=== PATIENT | female | born 1990 | race Caucasian/White ===

== ENCOUNTER → 2019-06-01 | Outpatient (CLI) | payer OTHER, SELFPAY ==
[2019-06-01 13:21] VITALS: BMI 27.4
[2019-06-01 14:29] LABS: Absolute Lymphocyte Count 1.48 X10^3/ul (0.83-4.51); Absolute Neutrophil Count 11.8 X10^3/uL (2.0-7.7); Basophil# 0.01 X10^3/uL; Basophil% 0.1 % (0-1); Eosinophil# 0.01 X10^3/uL; Eosinophils% 0.1 % (0-5); Hematocrit 40.2 % (37-47); Hemoglobin 13.4 g/dl (12.0-15.0); Lymphocyte # 1.48 X10^3/ul (4.0); Lymphocyte % 10.2 % (19-41); Mean Corp Hgb Conc 33.3 g/gl (32-36); Mean Corpuscular Hgb 30.5 pg (27.0-32.0); Mean Corpuscular Volume 91.4 fL (81-99); Mean Platelet Vol. 10.4 fl (6.2-12.0); Monocyte# 1.18 X10^3/uL; Monocyte% 8.2 % (0-10); Neutrophil # 11.75 X10^3/uL (2.7-7.7); Neutrophil % 81.1 % (47-70); Platelet Count 257 K/mm3 (150-450); White Blood Count 14.5 K/mm3 (4.4-11.0)
[2019-06-01 14:30] LABS: POSITIVE COUNT NO; POSITIVE DIFFERENTIAL NO; POSITIVE MORPHOLOGY NO
[2019-06-01 14:43] LABS: Thyroid Stim Hormone (TSH) 1.13 uIU/mL (0.358-3.74)
[2019-06-01 23:06] LABS: Chlamydia Trachomatis by PCR Negative (Negative); Neisserai gonorrhoeae by PCR Negative (Negative); Probe Check PASS; Sample Adequacy Control PASS; Specimen Processing Control PASS
[2019-06-06 14:55] LABS: HPV APTIMA, High Risk Negative (Negative)
[2019-06-06 14:57] LABS: HPV Reflexed? NOT INDICATED
== END | disposition home or self-care (01) ==
PROVIDERS: Referring Provider Nurse Practitioner Women's Health; Visit Provider Nurse Practitioner Women's Health
DX: N92.1 Excessive and frequent menstruation with irregular cycle (principal); Z11.3 Encounter for screening for infections with a predominantly sexual mode of transmission; Z12.4 Encounter for screening for malignant neoplasm of cervix
CPT/HCPCS: 36415; 84443; 85025; 87491; 87591; 87624; 88175; G0145

== ENCOUNTER → 2019-06-02 | Outpatient (CLI) | payer OTHER, SELFPAY ==
[2019-06-01 14:13] VITALS: BMI 27.4
== END | disposition home or self-care (01) ==
LOC: LABSPEC 14:24
PROVIDERS: Referring Provider Physician Assistant; Visit Provider Physician Assistant
DX: J02.9 Acute pharyngitis, unspecified (principal)
CPT/HCPCS: 87081

== ENCOUNTER → 2019-12-14 07:23 | Outpatient (CLI) | payer OTHER, SELFPAY ==
[2019-12-12 14:03] VITALS: BMI 27.4
[2019-12-14 08:30] LABS: Cholesterol 116 mg/dL (200); Follicle Stimulating Hormone 5.2 mIU/mL; Glucose 83 mg/dL (74-106); High Density Lipoprotein 42 mg/dL; Prolactin 13.7 ng/mL; Triglycerides 75 mg/dL; Very Low Density Lipoprotein 15 mg/dL (5-40)
[2019-12-14 08:31] LABS: Hemoglobin A1c 5.2 % (4.2-6.3)
[2019-12-16 13:34] LABS: Testosterone Free 2.6 pg/mL (0.0-4.2)
[2019-12-18 10:31] LABS: 17-Hydroxyprogesterone 116 ng/dL (.)
== END ==
PROVIDERS: Referring Provider Nurse Practitioner Women's Health; Visit Provider Nurse Practitioner Women's Health
DX: N91.1 Secondary amenorrhea (principal)
CPT/HCPCS: 36415; 80061; 82627; 82670; 82947; 83001; 83036; 83498; 84146; 84402; 82626

== ENCOUNTER 2020-09-07 19:25 | Outpatient (RCR) | payer OTHER, SELFPAY ==
[2020-06-04 10:55] VITALS: BMI 27.4
== END 2020-09-22 23:59 ==
LOC: LABSPEC 19:25
PROVIDERS: Visit Provider Family Medicine Geriatric Medicine
DX: Z11.59 Encounter for screening for other viral diseases (principal)
CPT/HCPCS: 87635; U0003

== ENCOUNTER → 2020-11-26 08:15 | Outpatient (CLI) | payer OTHER, SELFPAY ==
[2020-10-03 08:10] VITALS: BMI 34.4
[2020-11-26 09:07] LABS: Hemoglobin A1c 5.2 % (3.8-5.6)
[2020-11-26 09:10] LABS: Insulin 22.4 mU/L (2.6-37.6); Rubella IgG Reactive (Nonreactive)
[2020-11-26 09:11] LABS: AST(SGOT) 24 U/L (15-37); Alanine Aminotransfer ALT/SGPT 36 U/L (13-56); Albumin, Serum 4.2 g/dL (3.2-5.0); Alkaline Phosphatase 64 U/L (45-117); Anion Gap 9 (5-15); BUN 15 mg/dL (7-18); BUN/Creat Ratio 14.7 RATIO (10-20); Calcium,Total 8.9 mg/dL (8.5-10.1); Chloride 102 mmol/L (98-107); Cholesterol 155 mg/dL (200); Creatinine, Serum 1.02 mg/dL (0.55-1.02); EST Glomerular Filtration Rate 68 mL/min (>60); Est Glom Filt Rate - Afr Amer 83 mL/min (>60); Globulin 4.4 g/dL (2.2-4.2); Glucose 86 mg/dL (74-106); High Density Lipoprotein 54 mg/dL; Potassium 3.4 mmol/L (3.5-5.1); Protein, Total 8.6 g/dL (6.4-8.2); Sodium Level 138 mmol/L (136-145); Thyroid Stim Hormone (TSH) 5.83 uIU/mL (0.358-3.74); Triglycerides 85 mg/dL; Very Low Density Lipoprotein 17 mg/dL (5-40)
[2020-11-28 08:49] LABS: V-Zoster IgG (Immunity) 1735 index (Immune >165)
== END ==
PROVIDERS: Referring Provider Obstetrics & Gynecology Reproductive Endocrinology; Visit Provider Obstetrics & Gynecology Reproductive Endocrinology
DX: N93.8 Other specified abnormal uterine and vaginal bleeding (principal); E02 Subclinical iodine-deficiency hypothyroidism; E28.2 Polycystic ovarian syndrome; Z01.83 Encounter for blood typing; Z11.59 Encounter for screening for other viral diseases; Z11.8 Encounter for screening for other infectious and parasitic diseases; Z31.41 Encounter for fertility testing
CPT/HCPCS: 36415; 80053; 80061; 83036; 83525; 84403; 84443; 86762; 86787; 86900; 86901

== ENCOUNTER → 2020-12-03 07:20 | Outpatient (CLI) | payer OTHER, SELFPAY ==
[2020-10-03 08:10] VITALS: BMI 34.4
[2020-12-03 08:46] LABS: Glucose 75GTT - 30 minutes 132 mg/dL (100-160)
[2020-12-03 08:54] LABS: Glucose 75GTT - Fasting 86 mg/dL (70-99)
[2020-12-03 08:55] LABS: Insulin 23.4 mU/L (2.6-37.6)
[2020-12-03 09:00] LABS: Cholesterol 142 mg/dL (200); High Density Lipoprotein 52 mg/dL; T4 Free Direct 0.97 ng/dL (0.76-1.46); Triglycerides 84 mg/dL; Very Low Density Lipoprotein 17 mg/dL (5-40)
[2020-12-03 09:32] LABS: Glucose 75GTT - 60 minutes 114 mg/dL (100-160)
[2020-12-03 11:00] LABS: Glucose 75GTT - 120 minutes 97 mg/dL (70-140)
[2020-12-04 14:10] LABS: Thyroid Peroxidase AB 13 IU/mL (0-34)
[2020-12-04 15:21] LABS: Thyroglobulin Antibody < 1.0 IU/mL (0.0-0.9)
== END ==
PROVIDERS: Referring Provider Obstetrics & Gynecology Reproductive Endocrinology; Visit Provider Obstetrics & Gynecology Reproductive Endocrinology
DX: E16.8 Other specified disorders of pancreatic internal secretion (principal)
CPT/HCPCS: 36415; 80061; 82951; 82952; 83525; 84439; 84443; 86376; 86800

== ENCOUNTER 2021-02-26 23:05 | Outpatient (RCR) | payer OTHER, SELFPAY ==
[2021-02-18 09:06] VITALS: BMI 33.9
== END 2021-03-22 23:59 ==
LOC: EMPH 23:05
PROVIDERS: Visit Provider Family Medicine Geriatric Medicine
DX: Z03.818 Encounter for observation for suspected exposure to other biological agents ruled out (principal)
CPT/HCPCS: 87426

== ENCOUNTER → 2024-07-04 | Outpatient (CLI) | payer OTHER, SELFPAY ==
[2024-07-04 08:58] LABS: Absolute Lymphocyte Count 2.36 X10^3/uL (0.83-4.51); Absolute Neutrophil Count 3.6 X10^3/uL (2.0-7.7); Basophil# 0.04 X10^3/uL; Basophil% 0.6 % (0-1); Eosinophil# 0.12 X10^3/uL; Eosinophils% 1.8 % (0-5); Hematocrit 46.2 % (37-47); Hemoglobin 14.9 g/dL (12.0-15.0); Lymphocyte # 2.36 X10^3/ul (0.83-4.51); Lymphocyte % 35.8 % (19-41); Mean Corp Hgb Conc 32.3 g/dL (32-36); Mean Corpuscular Hgb 30.8 pg (27.0-32.0); Mean Corpuscular Volume 95.5 fL (81-99); Mean Platelet Vol. 10.7 fl (6.2-12.0); Monocyte# 0.44 X10^3/uL; Monocyte% 6.7 % (0-10); NRBC Flagged by Analyzer 0 % (0-5); Neutrophil # 3.62 X10^3/uL (2.7-7.7); Neutrophil % 54.8 % (47-70); Platelet Count 254 K/mm3 (150-450); RBC Distribution Width SD 45.7 fl (35.1-43.9); Red Blood Count 4.84 M/mm3 (4.2-5.4); White Blood Count 6.6 K/mm3 (4.4-11.0)
[2024-07-04 12:06] LABS: ALB/GLOB Ratio 0.9 RATIO (0.9-2.4); AST(SGOT) 28 U/L (15-37); Alanine Aminotransfer ALT/SGPT 40 U/L (13-56); Albumin, Serum 4.2 g/dL (3.2-5.0); Alkaline Phosphatase 61 U/L (45-117); Anion Gap 8 (5-15); BUN 13 mg/dL (7-18); BUN/Creat Ratio 12.6 RATIO (10-20); Calcium,Total 10.9 mg/dL (8.5-10.1); Chloride 105 mmol/L (98-107); Cholesterol 180 mg/dL (200); Creatinine, Serum 1.03 mg/dL (0.55-1.02); EST Glomerular Filtration Rate 66 mL/min (>60); Est Glom Filt Rate - Afr Amer 80 mL/min (>60); Globulin 4.5 g/dL (2.2-4.2); Glucose 73 mg/dL (74-106); High Density Lipoprotein 44 mg/dL; Potassium 3.4 mmol/L (3.5-5.1); Protein, Total 8.7 g/dL (6.4-8.2); Sodium Level 137 mmol/L (136-145); T4 Free Direct 0.85 ng/dL (0.76-1.46); Triglycerides 227 mg/dL; Very Low Density Lipoprotein 45 mg/dL (5-40)
[2024-07-05 08:19] LABS: Thyroid Stim Hormone (TSH) 2.94 uIU/mL (0.358-3.74)
== END | disposition home or self-care (01) ==
PROVIDERS: Referring Provider Physician Assistant; Visit Provider Physician Assistant
DX: L70.0 Acne vulgaris (principal); L72.8 Other follicular cysts of the skin and subcutaneous tissue; R53.83 Other fatigue; Z79.899 Other long term (current) drug therapy
CPT/HCPCS: 36415; 80053; 80061; 84439; 84443; 85025

== ENCOUNTER → 2024-10-11 | Outpatient (CLI) | payer OTHER, SELFPAY ==
[2024-10-11 10:18] LABS: AST(SGOT) 28 U/L (15-37); Alanine Aminotransfer ALT/SGPT 47 U/L (13-56); Cholesterol 184 mg/dL (200); High Density Lipoprotein 34 mg/dL; Triglycerides 210 mg/dL; Very Low Density Lipoprotein 42 mg/dL (5-40)
== END | disposition home or self-care (01) ==
LOC: MTLAB 07:15
PROVIDERS: Referring Provider Physician Assistant Medical; Visit Provider Physician Assistant Medical
DX: L70.0 Acne vulgaris (principal); Z79.899 Other long term (current) drug therapy
CPT/HCPCS: 36415; 80061; 84450; 84460

== ENCOUNTER → 2024-11-28 | Outpatient (CLI) | payer OTHER, SELFPAY ==
[2024-11-29 21:06] LABS: Chlamydia By Nucleic Acid AMP Negative (Negative); Gonococcus By Nucleic Acid AMP Negative (Negative)
[2024-11-30 14:08] LABS: HSV Culture Without Typing Positive (.)
== END | disposition home or self-care (01) ==
LOC: LABSPEC 11:18
PROVIDERS: Referring Provider Nurse Practitioner Family; Visit Provider Nurse Practitioner Family
DX: R35.0 Frequency of micturition (principal); R30.9 Painful micturition, unspecified
CPT/HCPCS: 87086; 87088; 87255; 87491; 87591

== ENCOUNTER → 2024-12-29 | Outpatient (CLI) | payer OTHER, SELFPAY ==
[2025-01-04 15:07] LABS: HPV APTIMA, High Risk Negative (Negative)
== END | disposition home or self-care (01) ==
LOC: LABSPEC 16:56
PROVIDERS: Referring Provider Nurse Practitioner Family; Visit Provider Nurse Practitioner Family
DX: Z12.4 Encounter for screening for malignant neoplasm of cervix (principal)
CPT/HCPCS: 87624; 88175; G0145

== ENCOUNTER → 2025-06-22 | Outpatient (CLI) | payer OTHER, SELFPAY ==
--- NOTE | 2025-06-22 13:54 | US_ITS ---
PROCEDURE: BREAST LIMITED UNILATERAL 06/22/2025 REASON FOR EXAM: F, Age 34 y/o , BREAST INDURATION Waxing and waning left breast pain for 6 months. COMPARISON: Prior mammogram done earlier in the day.. TECHNIQUE: BREAST LIMITED UNILATERAL. The lateral half of the left breast was examined with ultrasound. FINDINGS: There are several cysts at the 3 o'clock position of the left breast. The largest cyst measures 1.1 cm x 1 cm x 0.9 cm. US/Breast Limited Unilateral IMPRESSION: Multiple small cysts are seen in the lateral aspect of the left breast as descr ibed. BI-RADS 2: BENIGN RECOMMENDATION: Routine annual follow-up in 1 Year Reading Location: [facility]
--- NOTE | 2025-06-22 14:00 | BI_ITS ---
EXAM: DIAG MAMM W/CAD, BILAT N/A CLINICAL HISTORY: F, Age 34 y/o , LEFT SIDED BREAST PAIN WITH INDURATION TECHNIQUE: DIAG MAMM W/CAD, BILAT. COMPARISON: This is a baseline study. FINDINGS: TISSUE DENSITY: The breasts are extremely dense, which lowers the sensitivity of mammography. Bilateral Breast Mammographic Findings: No significant masses, calcifications or other abnormalities are identified. Small benign-appearing bilateral axillary lymph nodes. No suspicious masses, areas of developing architectural distortion, or suspicious calcifications. There has been no significant interval change. BI/DIAG MAMM W/CAD, BILAT IMPRESSION: No mammographic abnormality is seen. Further sonographic correlation recommend ed. OVERALL FINAL ASSESSMENT BI-RADS 0: INCOMPLETE - NEED ADDITIONAL IMAGING EVALUATION. RECOMMENDATION: Ultrasound Recommended A letter with findings and recommendations will be mailed to the patient. Reading Location: [id number]
== END | disposition home or self-care (01) ==
PROVIDERS: Referring Provider Registered Nurse; Visit Provider Registered Nurse
DX: N64.51 Induration of breast (principal); N64.4 Mastodynia
CPT/HCPCS: 76642; 77062; 77066; G0279